=== PATIENT | female | born 1995 | race Two or more races ===

== ENCOUNTER 2016-03-21 23:25 | Emergency (ER) | payer SELFPAY ==
[~2016-03-21] VITALS: Ht 165.1 cm; Wt 56.7 kg
[2016-03-21] MEDS ORDERED: IV SET PRIMARY 1 EA INFUS.SET MC ONE (23:56)
[2016-03-21] MEDS ORDERED: ACTIVATED CHARCOAL 25 GM/120 ML TUBE ONE (23:56)
[2016-03-21] MEDS ORDERED: IV NS 0.9% 1,000 ML ONE (23:56)
[2016-03-22] MEDS ORDERED: ACTIVATED CHARCOAL 25 GM/120 ML TUBE PO ONE
[2016-03-22 00:03] LABS: BASOPHILS # (AUTO) 0.1 /CMM (0.0-0.2); BASOPHILS % (AUTO) 0.5 % (0.0-2.0); DIFF TOTAL % 100 %; EOSINOPHILS % (AUTO) 0.4 % (0.0-6.0); HEMATOCRIT 42 % (33-45); HEMOGLOBIN 14.3 g/dL (11.5-14.8); LYMPHOCYTES # (AUTO) 3.2 /CMM (0.8-4.8); LYMPHOCYTES % (AUTO) 24.6 % (20.0-44.0); MEAN CORPUSCULAR HEMOGLOBIN 32 PG (26.0-33.0); MEAN CORPUSCULAR HGB CONC 34 g/dl (31.0-36.0); MEAN CORPUSCULAR VOLUME 94 fL (82-100); MONOCYTES # (AUTO) 0.9 /CMM (0.1-1.30); MONOCYTES % (AUTO) 6.6 % (2.0-12.0); NEUTROPHILS # (AUTO) 8.9 /CMM (1.8-8.9); NEUTROPHILS % (AUTO) 67.9 % (43.0-81.0); PLATELET COUNT (AUTO) 418 /CMM (150-450); RED BLOOD CELL COUNT(AUTO) 4.49 MIL/uL (4.0-5.2); WHITE BLOOD COUNT (AUTO) 13.1 K/uL (4.3-11.0)
[2016-03-22 00:14] LABS: KETONES,URINE NEGATIVE (NEGATIVE); LEUKOCYTE ESTERASE ,URINE NEGATIVE (NEGATIVE); PREGNANCY TEST URINE QUAL NEGATIVE (NEGATIVE)
[2016-03-22 00:15] LABS: ADD UA MICROSCOPIC YES; ADD URINE CULTURE NO; RBC,URINE 0-2 /HPF (0-2); WBC,URINE NONE SEEN /HPF (0-3)
[2016-03-22 00:18] LABS: CALCIUM, SERUM 8.5 mg/dL (8.5-10.1); CREATININE 0.7 mg/dL (0.6-1.3); POTASSIUM 3.8 mmol/L (3.5-5.1)
[2016-03-22 00:23] LABS: CANNABINOID, URINE NEGATIVE (NEGATIVE); PHENCYCLIDINE SCREEN,URINE NEGATIVE (NEGATIVE)
[2016-03-22 00:25] LABS: ALBUMIN 4.5 g/dL (3.4-5.0); BILIRUBIN,DIRECT 0.1 mg/dL (0.0-0.2); BILIRUBIN,TOTAL 0.3 mg/dL (0.2-1.0); INDIRECT BILIRUBIN 0.2 mg/dL (0.0-1.1)
[2016-03-22 00:38] LABS: SALICYLATE 1.1 mg/dL (2.8-20.0)
[2016-03-22] MEDS ORDERED: ONDANSETRON HCL/PF 4 MG/2 ML VIAL ONE (00:42)
[2016-03-22] MEDS ORDERED: LORAZEPAM INJ 2 MG/ML VIAL ONE ×4 (00:57→04:52)
[2016-03-22] MEDS ORDERED: ONDANSETRON HCL/PF - ER 4 MG/2 ML VIAL IV ONE (01:00)
[2016-03-22] MEDS ORDERED: LORAZEPAM INJ 2 MG/ML VIAL IV ONE ×4 (01:00→05:00)
[2016-03-22] MEDS ORDERED: IV SET PRIMARY 1 EA INFUS.SET MC ONE (01:29)
[2016-03-22] MEDS ORDERED: IV NS 0.9% 1,000 ML ONE ×2 (01:29→03:20)
[2016-03-22] MEDS ORDERED: IV NS 0.9% 1,000 ML BAG IV ONE ×3 (02:00→03:30)
[2016-03-22 11:12] VITALS: BP 113/69
== END 2016-03-22 11:13 | disposition home or self-care (01) ==
LOC: ER 23:28
DX: T43.622A Poisoning by amphetamines, intentional self-harm, initial encounter (principal); F10.129 Alcohol abuse with intoxication, unspecified; F32.9 Major depressive disorder, single episode, unspecified; F98.8 Other specified behavioral and emotional disorders with onset usually occurring in childhood and adolescence; Y92.9 Unspecified place or not applicable
CPT/HCPCS: 36415; 80048-TC; 80076-TC; 80305; 81000-TC; 84703-TC; 85025-TC; A4606; G6038-TC; G6039-TC; G6040-TC; J2060; J2405; J7030; Z7610